=== PATIENT | male | born 1965 | race Asian ===

== ENCOUNTER 2020-05-27 12:51 | Emergency (ER) | payer OTHER ==
[2020-05-27 12:56] VITALS: BP 123/83; PULSE 76; TEMP 98; BMI 31.3
[2020-05-27] MEDS ORDERED: LIDOCAINE 5% TOPICAL PATCH TP ONE (13:22)
[2020-05-27] MEDS ORDERED: LIDOCAINE 5% TOPICAL PATCH ONE (13:27)
[2020-05-27] MEDS ORDERED: LIDOCAINE PATCH REMOVAL MC SCH (22:00)
== END 2020-05-27 14:02 | disposition home or self-care (01) ==
LOC: JER 12:51
DX: B02.9 Zoster without complications (principal)
CPT/HCPCS: 99283-25